=== PATIENT | female | born 1995 | race Caucasian/White ===

== ENCOUNTER → 2022-06-07 | Emergency (ER) | payer OTHER ==
[~2022-06-07] VITALS: Ht 165.1 cm; Wt 79.4 kg
[~2022-06-07] MED LIST: PRENATAL DHA200 MG; TUSSI-PRES LIQ120 ML PO; ZITHROMAX TRI-500 MG PO
== END | disposition home or self-care (01) ==
LOC: ER 03:31
DX: O26.891 Other specified pregnancy related conditions, first trimester (principal); Z3A.01 Less than 8 weeks gestation of pregnancy; R10.2 Pelvic and perineal pain

== ENCOUNTER 2022-07-21 17:17 | Emergency (ER) | payer OTHER ==
[~2022-07-21] VITALS: Ht 165.1 cm; Wt 86.2 kg
[2022-07-21] MEDS ORDERED: PRENA1 TRUE CO1 EACH (17:48)
== END 2022-07-21 21:29 | disposition home or self-care (01) ==
LOC: ER 17:17
DX: O26.891 Other specified pregnancy related conditions, first trimester (principal); Z3A.12 12 weeks gestation of pregnancy; R10.2 Pelvic and perineal pain

== ENCOUNTER 2023-01-24 04:02 | Outpatient (CLI) | payer OTHER ==
[~2023-01-24 04:02] MED LIST changes: +PRENA1 TRUE CO1 EACH
[2023-01-24] MEDS ORDERED: VALTREX1000 MG PO (04:08)
== END 2023-01-24 08:15 | disposition home or self-care (01) ==
LOC: OBS/DEL 04:02 → LDR 04:19 → OBS/DEL 07:38
PROVIDERS: ATTEND Obstetrics & Gynecology
DX: O47.1 False labor at or after 37 completed weeks of gestation (principal); Z3A.38 38 weeks gestation of pregnancy; Z91.018 Allergy to other foods

== ENCOUNTER 2023-01-26 17:45 | Inpatient (IN) | payer OTHER ==
[~2023-01-26] VITALS: Ht 165.1 cm; Wt 3.6 kg
[~2023-01-26 17:45] MED LIST changes: +VALTREX1000 MG PO
[2023-01-30] MEDS ORDERED: OXYC1TAB9 PO (07:53)
[2023-01-30] MEDS ORDERED: DOCUSATE SODIU100 MG PO (07:53)
[2023-01-30] MEDS ORDERED: IBUPROFEN800 MG PO (07:53)
== END 2023-01-30 14:02 | disposition home or self-care (01) | DRG 788 ==
LOC: LDR 17:45 → OB/GYN 17:45
PROVIDERS: ADMIT Student in an Organized Health Care Education/Training Program; ATTEND Student in an Organized Health Care Education/Training Program
PROC: 4A1HXCZ Monitoring of Products of Conception, Cardiac Rate, External Approach (ICD-10-PCS; 2023-01-26)
PROC: 10D00Z1 Extraction of Products of Conception, Low, Open Approach (ICD-10-PCS; principal; 2023-01-27 03:30)
DX: O62.1 Secondary uterine inertia (principal); O75.81 Maternal exhaustion complicating labor and delivery; Z3A.39 39 weeks gestation of pregnancy; Z37.0 Single live birth; Z20.822 Contact with and (suspected) exposure to COVID-19